=== PATIENT | female | born 1985 | race Caucasian/White ===

== ENCOUNTER 2016-09-27 03:40 | Observation (INO) | payer BC, MEDICAID ==
[~2016-09-27] VITALS: Ht 162.6 cm; Wt 97.5 kg
[~2016-09-27 03:40] MED LIST: PRENAT PO
[2016-09-27 03:44] VITALS: Ht 162.6 cm; Wt 97.5 kg
--- NOTE | 2016-09-27 04:17 | ERD ---
ER Documentation Chief Complaint Date/Time DATE: 09/27/16 TIME: 04:15 Chief Complaint lmp 08/20/16 states she has still iud in placed, pelvic pain HPI 22-year-old female presents here in emergency department for complaints of pelvic pain that started yesterday. Patient states that she just knew that she was yesterday. LMP 08/20/2016, patient states that she still has the IUD in place. Patient describes pelvic pain and cramping pain 4/10, not better or worse with anything. ROS All systems reviewed and are negative except as per history of present illness. Medications Home Meds Reported Medications Multivit/Min/Fol Ac/Iron/Pren* ( S*) 1 Tab Tab, 1 TAB PO DAILY, TAB 04/05/15 Allergies Allergies: Coded Allergies: No Known Drug Allergies (Verified Allergy, Unknown, 08/11/14) PMhx/Soc Medical and Surgical Hx: pt denies Medical Hx, pt denies Surgical Hx History of Surgery: No (denies) Anesthesia Reaction: No Hx Neurological Disorder: No Hx Respiratory Disorders: No Hx Cardiac Disorders: No Hx Psychiatric Problems: No Hx Miscellaneous Medical Probl: No Hx Alcohol Use: No Hx Substance Use: No Hx Tobacco Use: No Smoking Status: Never smoker FmHx Family History: No coronary disease, No diabetes, No other Physical Exam Vitals Vital Signs Date Time Temp Pulse Resp B/P Pulse Ox O2 Delivery O2 Flow Rate FiO2 09/27/16 03:44 97.8 94 20 163/70 99 Physical Exam GENERAL: The patient is well developed and appropriate for usual state of health, in no apparent distress. CHEST: Clear to auscultation bilaterally. There are no rales, wheezes or rhonchi. HEART: Regular rate and rhythm. No murmurs, clicks, rubs or gallops. No S3 or S4. ABDOMEN: Soft, nontender and nondistended. Good bowel sounds. No rebound or guarding. No gross peritonitis. No gross organomegaly or masses. No Olson sign or McBurney point tenderness. BACK: No midline or flank tenderness. EXTREMITIES: Equal pulses bilaterally. There is no peripheral clubbing, cyanosis or edema. No focal swelling or erythema. Full range of motion. Grossly neurovascularly intact. NEURO: Alert and oriented. Cranial nerves 2-12 intact. Motor strength in all 4 extremities with 5/5 strength. Sensation grossly intact. Normal speech and gait. SKIN: There is no apparent rash or petechia. The skin is warm and dry. HEMATOLOGIC AND LYMPHATIC: There is no evidence of excessive bruising or lymphedema. No gross cervical, axillary, or inguinal lymphadenopathy. Result Diagram: 09/27/16 0412 Results 24 hrs Laboratory Tests Test 09/27/16 04:08 09/27/16 04:12 09/27/16 05:12 Urine Color LT. YELLOW Urine Clarity SL HAZY Urine pH 6.0 Urine Specific [place] 1.020 Urine Ketones NEGATIVE Urine Nitrite NEGATIVE Urine Bilirubin NEGATIVE Urine Urobilinogen 0.2 E.U./dL Urine Leukocyte Esterase 1+ Urine Microscopic RBC 10-25/HPF Urine Microscopic WBC 25-50/HPF Urine Squamous Epithelial Cells FEW Urine Hemoglobin 3+ Urine Glucose NEGATIVE% Urine Total Protein NEGATIVE White Blood Count 16.610^3/ul Red Blood Count 4.2510^6/ul Hemoglobin 13.5g/dl Hematocrit 39.1% Mean Corpuscular Volume 92.0fl Mean Corpuscular Hemoglobin 31.8pg Mean Corpuscular Hemoglobin Concent 34.5g/dl Red Cell Distribution Width 12.8% Platelet Count 99650^3/UL Pending Mean Platelet Volume 11.4fl Neutrophils % 78.0% Lymphocytes % 14.7% Monocytes % 6.0% Eosinophils % 0.5% Basophils % 0.3% Nucleated Red Blood Cells % 0.0/100WBC Neutrophils # 12.910^3/ul Lymphocytes # 2.410^3/ul Monocytes # 1.010^3/ul Eosinophils # 0.110^3/ul Basophils # 0.110^3/ul Nucleated Red Blood Cells # 0.010^3/ul Beta HCG, Quantitative 20741.0mIU/ml Prothrombin Time 13.2Sec Prothrombin Time Ratio 1.0 INR International Normalized Ratio 1.00 Activated Partial Thromboplast Time 27.1Sec Thrombin Time 14.9SEC Fibrinogen 305.0mg/dl PROCEDURE: Obstetrical ultrasound, limited. CLINICAL INDICATION: Pelvic pain. TECHNIQUE: Multiple sonographic images of the pelvis were obtained using transabdominal technique. Images were obtained with lynch scale and color Doppler. The images were reviewed on a PACS workstation. COMPARISON: No prior studies are available for comparison. FINDINGS: There is a single intrauterine gestation with the fetus in a breech presentation. No heart tones are identified. The placenta is fundal in location, grade 0. There is no amniotic fluid. Measurements were made in order to determine age. The results are as follows: BPD = 3.43 cm HC = 14.00 cm AC = 13.52 cm FL = 2.91 cm. Estimated gestational age of approximately 18 weeks and 0 days. The EFW = 254 +/- 38 grams. IMPRESSION: Single intrauterine gestation of approximately 18 weeks and 0 days. No heart tones are identified compatible with early failed . .Marck Duong MD, MD Date Time Electronically viewed and signed by .Marck Duong MD, on 09/27/2016 04:38 .T/ CC: NATALYA CASTAÑEDA NP 050 I discussed case with OB Laborist, Dr Adames, recommended to do more testing, Coag Screen, FDP amd Fibrinogen, to relay results to OB when available , patient may choose couple of options for treatment: natural method, medical management or surgical management, tests were ordered, pending results at this time. will contact OB once results are back. Patient was informed regarding 18 week , patient didn't know how long she was and just knew about yesterday. Patient opted to do medical management for possible delivery of the 18 week , I discussed this case with OB Laborist, Dr Aadmes, she will admit patient to the hospital for possible IV Pitocin. Patient will be admitted to labor and delivery. Procedures/MDM Medical Decision Making: Patient has 18 week that is not viable consistent with demise and incomplete , patient opted to do medical management for possible delivery of the 18 week intrauterine demise, patient will be admitted to the hospital, will be admitted to labor and delivery, Dr Adames will admit patient to hospital. Departure Diagnosis: Primary Impression: IUFD (intrauterine ) Condition: Fair NATALYA CASTAÑEDA NP September 27, 2016 04:17
[2016-09-27 04:24] LABS: ADD SCAN DIFF NO
[2016-09-27 04:29] LABS: BASOPHIL # 0.1 10^3/ul (0.0-0.1); BASOPHILS % 0.3 % (0.0-2.0); EOSINOPHILS # 0.1 10^3/ul (0.0-0.5); EOSINOPHILS % 0.5 % (0.0-7.0); HEMATOCRIT 39.1 % (37.0-47.0); HEMOGLOBIN 13.5 g/dl (12.0-16.0); LYMPHOCYTES # 2.4 10^3/ul (0.8-2.9); LYMPHOCYTES % 14.7 % (15.0-51.0); MEAN CORPUSCULAR HEMOGLOBIN 31.8 pg (29.0-33.0); MEAN CORPUSCULAR HGB CONC 34.5 g/dl (32.0-37.0); MEAN PLATELET VOLUME 11.4 fl (7.4-10.4); NEUTROPHIL # 12.9 10^3/ul (1.6-7.5); PLATELET COUNT 164 10^3/UL (140-415); RED BLOOD COUNT 4.25 10^6/ul (4.20-5.40); RED CELL DISTRIBUTION WIDTH 12.8 % (11.5-14.5); WHITE BLOOD COUNT 16.6 10^3/ul (4.8-10.8)
[2016-09-27 04:30] LABS: ADD UMIC YES; URINE BILIRUBIN (Dip) NEGATIVE (NEGATIVE); URINE BLOOD (Dip) 3+ (NEGATIVE); URINE COLOR LT. YELLOW (YELLOW); URINE GLUCOSE (Dip) NEGATIVE (NEGATIVE); URINE KETONES (Dip) NEGATIVE (NEGATIVE); URINE LEUKOCYTE ESTERASE (Dip) 1+ (NEGATIVE); URINE NITRITE (Dip) NEGATIVE (NEGATIVE); URINE TOTAL PROTEIN (Dip) NEGATIVE (NEGATIVE); URINE UROBILINOGEN (Dip) 0.2 E.U./dL (0.1-1.0)
--- NOTE | 2016-09-27 04:38 | RADRPT ---
PROCEDURE: Obstetrical ultrasound, limited. CLINICAL INDICATION: Pelvic pain. TECHNIQUE: Multiple sonographic images of the pelvis were obtained using transabdominal technique . Images were obtained with lynch scale and color Doppler. The images were reviewed on a PACS works tation. COMPARISON: No prior studies are available for comparison. FINDINGS: There is a single intrauterine gestation with the fetus in a breech presentation. No heart to natalie are identified. The placenta is fundal in location, grade 0. There is no amniotic fluid. Measurements were made in order to determine age. The results are as follows: BPD =3.43 cm HC =14.00 cm AC =13.52 cm FL =2.91 cm. Estimated gestational age of approximately 18 weeks and 0 days. The EFW = 254 +/- 38 grams. IMPRESSION: Single intrauterine gestation of approximately 18 weeks and 0 days. No heart tones are identi fied compatible with early failed . .Marck Duong MD, Date Time Electronically viewed and signed by .Marck Duong MD, MD on 09/27/2016 04:38 .T/
[2016-09-27 04:41] LABS: SQUAMOUS EPITHELIAL CELL,UR FEW
[2016-09-27 05:45] LABS: PROTIME 13.2 Sec (12.2-14.2)
[2016-09-27 05:46] LABS: PARTIAL THROMBOPLASTIN TIME 27.1 Sec (25.0-35.0); THROMBIN TIME 14.9 SEC (13.8-19.1)
[2016-09-27] MEDS ORDERED: SUCCINYLCHOLINE CHLORIDE 100 MG/5 ML SYG IV ONE (07:00)
[2016-09-27 09:12] VITALS: TEMP 98.1
[2016-09-27 09:50] VITALS: BP 139/81; PULSE 82; RESP 18
[2016-09-27] MEDS ORDERED: MISOPROSTOL 200 MCG TAB PR PRN ×2 (10:00→23:00)
[2016-09-27] MEDS ORDERED: LIDOCAINE 1% (MPF) 30 ML INJ INJ PRN (10:00)
[2016-09-27] MEDS ORDERED: OXYTOCIN 30 UNITS/LR 500 ML IV SCH ×2 (10:00)
[2016-09-27] MEDS ORDERED: OXYTOCIN 30 UNITS/LR 500 ML IV PRN ×2 (10:00→23:00)
[2016-09-27] MEDS ORDERED: LACTATED RINGER'S 1,000 ML IV PRN (10:00)
[2016-09-27] MEDS ORDERED: METHYLERGONOVINE 0.2 MG INJ IM PRN ×2 (10:00→23:00)
[2016-09-27] MEDS ORDERED: CARBOPROST 250 MCG INJ IM PRN ×2 (10:00→23:00)
[2016-09-27] MEDS ORDERED: BUTORPHANOL 2 MG INJ IV PRN (10:00)
[2016-09-27] MEDS ORDERED: MISOPROSTOL 200 MCG TAB PR STA (10:51)
[2016-09-27] MEDS: LACTATED RINGER'S 1,000 ML IV SCH ×3 (11:25→19:58)
[2016-09-27] MEDS ORDERED: CEFTRIAXONE 1 GM/50 ML (PMX) 50 ML IVPB SCH (12:00)
[2016-09-27] MEDS: MISOPROSTOL 200 MCG TAB PR PRN ×3 (13:15→15:58)
[2016-09-27] MEDS ORDERED: FENTAnyl 50 MCG/ML VIAL ONE (17:28)
[2016-09-27] MEDS ORDERED: PHENYLephrine (100 MCG/ML) 5ML SYG ONE (17:36)
[2016-09-27 17:59] LABS: HEMATOCRIT 34.3 % (37.0-47.0); HEMOGLOBIN 11.6 g/dl (12.0-16.0)
[2016-09-27] MEDS ORDERED: NEOSTIGMINE 3 MG/3 ML SYRINGE ONE (18:02)
--- NOTE | 2016-09-27 18:10 | QN ---
Documentation Comment September 27, 2006 Operative report Incomplete evacuation of uterine content and placenta Anesthesia general Procedure; under light general anesthesia patient was placed in lithotomy position vaginal area prepped and draped On bimanual examination the cervix was already dilated and portion of the placental cord was palpable speculum was placed inside the vagina and the entire uterus was removed using ring forceps and a pelvic exam was repeated And the uterus was contracted with very little bleeding after this procedure patient was transferred to her room in stable condition End of dictation thank ALICJA MCDONALD MD September 27, 2016 18:10
--- NOTE | 2016-09-27 18:21 | CONS ---
Date/Time of Note Date/Time of Note DATE: 09/27/16 TIME: 18:11 Consultation Date/Type/Reason Admit Date/Time September 27, 2016 at 05:57 Reason for Consultation This is a consult and preoperative history and physical This patient is a 30 years old 4 para 1 AB 2 . She came to emergency room due to delay in her period and apparently the of unknown duration. On ultrasound study the of about 18 weeks was noted the fetus did not have any heart motion. She was subsequently admitted in OB floor On examination fundus was about 18 weeks size no heart tone no contractions. On pelvic examination cervix was closed and thick Her condition was discussed with the patient and the decision was made to go ahead for induction of the with Cytotec which will start this morning. Her past history is significant in that her last delivery was terminated prematurely at 35 weeks due to preeclampsia . The delivery was done by section,. She said she inserted an IUD couple years ago however on ultrasound IUD was not detected On examination her blood pressure was about 130/80 pulse 80 respirations were 29 , Laboratory Tests Test 09/27/16 04:08 09/27/16 04:12 09/27/16 05:12 Urine Color LT. YELLOW Urine Clarity SL HAZY Urine pH 6.0 Urine Specific [place] 1.020 Urine Ketones NEGATIVE Urine Nitrite NEGATIVE Urine Bilirubin NEGATIVE Urine Urobilinogen 0.2 E.U./dL Urine Leukocyte Esterase 1+ Urine Microscopic RBC 10-25/HPF Urine Microscopic WBC 25-50/HPF Urine Squamous Epithelial Cells FEW Urine Hemoglobin 3+ Urine Glucose NEGATIVE% Urine Total Protein NEGATIVE White Blood Count 16.610^3/ul Red Blood Count 4.2510^6/ul Hemoglobin 13.5g/dl Hematocrit 39.1% Mean Corpuscular Volume 92.0fl Mean Corpuscular Hemoglobin 31.8pg Mean Corpuscular Hemoglobin Concent 34.5g/dl Red Cell Distribution Width 12.8% Platelet Count 19222^3/UL 32265^3/UL Mean Platelet Volume 11.4fl Neutrophils % 78.0% Lymphocytes % 14.7% Monocytes % 6.0% Eosinophils % 0.5% Basophils % 0.3% Nucleated Red Blood Cells % 0.0/100WBC Neutrophils # 12.910^3/ul Lymphocytes # 2.410^3/ul Monocytes # 1.010^3/ul Eosinophils # 0.110^3/ul Basophils # 0.110^3/ul Nucleated Red Blood Cells # 0.010^3/ul Beta HCG, Quantitative 38251.0mIU/ml Hepatitis B Surface Antigen NEGATIVE Prothrombin Time 13.2Sec Prothrombin Time Ratio 1.0 INR International Normalized Ratio 1.00 Activated Partial Thromboplast Time 27.1Sec Thrombin Time 14.9SEC Fibrinogen 305.0mg/dl Plasma Fibrin Degradation Products <10ug/ml Current Medications Medications (Trade) Dose Ordered Sig/Pankaj Route PRN Reason Start Time Stop Time Status Last Admin Dose Admin Lactated Ringer's (Lr) 1,000 ml @ 125 mls/hr Q8H IV 09/27/16 09:52 09/27/16 11:25 125 MLS/HR Butorphanol Tartrate (Stadol) 2 mg Q2H PRN IV PAIN 09/27/16 10:00 09/27/16 15:56 2 MG Lidocaine 30 ml 30 ml ONCE PRN INJ EPISIOTOMY/TEARING 09/27/16 10:00 Oxytocin/Lactated Ringer's 500 ml @ 125 mls/hr ONCE -MAY REPEAT X1 IV 09/27/16 10:00 09/27/16 14:50 125 MLS/HR Oxytocin/Lactated Ringer's 500 ml @ 125 mls/hr ONCE IV 09/27/16 10:00 09/27/16 15:45 125 MLS/HR Lactated Ringer's 1,000 ml @ 2,000 mls/hr Q30M PRN IV PRE-EPIDURAL BOLUS 09/27/16 10:00 Oxytocin/Lactated Ringer's 500 ml @ 0 mls/hr ONCE PRN IV For Hemorrhage Management 09/27/16 10:00 Methylergonovine Maleate (Methergine) 0.2 mg ONCE PRN IM VAGINAL BLEEDING 09/27/16 10:00 Carboprost Tromethamine (Hemabate) 250 mcg ONCE PRN IM VAGINAL BLEEDING 09/27/16 10:00 Misoprostol 1000 mcg 1,000 mcg ONCE PRN [place] VAGINAL BLEEDING 09/27/16 10:00 Ceftriaxone Sodium (Rocephin) 50 ml @ 100 mls/hr Q12 IVPB 09/27/16 12:00 09/27/16 11:42 100 MLS/HR Misoprostol (Cytotec) 500 mcg ONCE STAT [place] 09/27/16 10:51 09/27/16 11:04 DC 09/27/16 11:18 400 MCG Misoprostol (Cytotec) 200 mcg Q2 PRN [place] CONTRACTIONS 09/27/16 11:30 09/27/16 15:58 200 MCG Fentanyl (Sublimaze) 100 mcg STK-MED ONCE .ROUTE 09/27/16 17:28 09/27/16 17:29 DC Phenylephrine HCl (Babar-Synephrine Inj Syg) 500 mcg STK-MED ONCE .ROUTE 09/27/16 17:36 09/27/16 17:37 DC Neostigmine Methylsulfate (Neostigmine) 3 mg STK-MED ONCE .ROUTE 09/27/16 18:02 09/27/16 18:03 DC Constitutional: No chills, No diaphoresis, No disoriented, No febrile, No improved, No no complaints, No other, No poor po, No requiring IVF, No requiring O2 Eyes: No discharge, No no complaints, No other, No pain, No redness, No visual change ENT: No bleeding, No congestion, No discharge, No dysphagia, No no complaints, No other, No pain, No sore throat Respiratory: No cough, No no complaints, No other, No pain, No pleuritic pain, No shortness of breath, No sputum, No wheezing Cardiovascular: No chest pain, No edema, No lightheadedness, No no complaints, No orthopenea, No other, No palpitations, No paroxysmal nocturnal dyspnea Gastrointestinal: No blood, No constipation, No decreased appetite, No diarrhea , No flatus, No nausea, No no complaints, No other, No pain, No passing stool, No vomiting Genitourinary: other (The uterus was enlarged about 18 weeks size no heart tone as I mentioned cervix was about 1 finger 50%), No bleeding, No discharge, No dysuria, No flank pain, No hematuria, No no complaints Musculoskeletal: No back pain, No bone/joint pain, No neck pain, No no complaints, No other, No restricted range of motion, No swelling Skin: No bruising, No erythema, No laceration, No no complaints, No other, No pruritis, No rash, No skin lesions Neurologic: No confusion, No dizziness, No focal-weakness, No headache, No no complaints, No other, No seizure, No syncope Endocrine: No dry skin, No no complaints, No other, No polydypsia, No polyuria , No temp intolerance Psychological: No anxiety, No confusion, No depression, No nl mood/affect, No no complaints, No other, No suicidal Additional Comments We the diagnosis of demise at 15 weeks she was induced with prostaglandin "Cytotec". Cervix became soft and started dilating and gradually made progress and delivered the fetus which was in breech presentation . Cord was clamped and cut. The placenta did not come out after about 2 hours due to excessive bleeding she was taken to the operating room where the placenta was removed under light general anesthesia . She was already given 2 units of blood and we are doing H&H for possible more transfusion if necessary. Social History Smoking Status: Never smoker Exam/Review of Systems Vital Signs Vitals Vital Signs Date Time Temp Pulse Resp B/P Pulse Ox O2 Delivery O2 Flow Rate FiO2 09/27/16 09:50 98.4 82 18 139/81 Room Air 09/27/16 09:12 100 Results Result Diagram: 09/27/16 0512 Results 24 hrs Laboratory Tests Test 09/27/16 04:08 09/27/16 04:12 09/27/16 05:12 Urine Color LT. YELLOW Urine Clarity SL HAZY Urine pH 6.0 Urine Specific [place] 1.020 Urine Ketones NEGATIVE Urine Nitrite NEGATIVE Urine Bilirubin NEGATIVE Urine Urobilinogen 0.2 E.U./dL Urine Leukocyte Esterase 1+ H Urine Microscopic RBC 10-25 Urine Microscopic WBC 25-50 Urine Squamous Epithelial Cells FEW Urine Hemoglobin 3+ H Urine Glucose NEGATIVE Urine Total Protein NEGATIVE White Blood Count 16.6 #H Red Blood Count 4.25 # Hemoglobin 13.5 # Hematocrit 39.1 # Mean Corpuscular Volume 92.0 Mean Corpuscular Hemoglobin 31.8 Mean Corpuscular Hemoglobin Concent 34.5 Red Cell Distribution Width 12.8 Platelet Count 164 164 Mean Platelet Volume 11.4 H Neutrophils % 78.0 H Lymphocytes % 14.7 L Monocytes % 6.0 Eosinophils % 0.5 Basophils % 0.3 Nucleated Red Blood Cells % 0.0 Neutrophils # 12.9 H Lymphocytes # 2.4 Monocytes # 1.0 H Eosinophils # 0.1 Basophils # 0.1 Nucleated Red Blood Cells # 0.0 Beta HCG, Quantitative 22228.0 Hepatitis B Surface Antigen NEGATIVE Prothrombin Time 13.2 Prothrombin Time Ratio 1.0 INR International Normalized Ratio 1.00 Activated Partial Thromboplast Time 27.1 Thrombin Time 14.9 Fibrinogen 305.0 # Plasma Fibrin Degradation Products <10 Medications Medications Current Medications Lactated Ringer's (Lr) 1,000 ml @ 125 mls/hr Q8H IV Last administered on 11:25; Admin Dose 125 MLS/HR; Start 09/27/16 at 09:52 Butorphanol Tartrate (Stadol) 2 mg Q2H PRN IV PAIN Last administered on 15:56; Admin Dose 2 MG; Start 09/27/16 at 10:00 Lidocaine 30 ml 30 ml ONCE PRN INJ EPISIOTOMY/TEARING; Start 09/27/16 at 10:00 Oxytocin/Lactated Ringer's 500 ml @ 125 mls/hr ONCE IV Last administered on 15:45; Admin Dose 125 MLS/HR; Start 09/27/16 at 10:00 Lactated Ringer's 1,000 ml @ 2,000 mls/hr Q30M PRN IV PRE-EPIDURAL BOLUS; Start 09/27/16 at 10:00 Oxytocin/Lactated Ringer's 500 ml @ 0 mls/hr ONCE PRN IV For Hemorrhage Management; Start 09/27/16 at 10:00 Methylergonovine Maleate (Methergine) 0.2 mg ONCE PRN IM VAGINAL BLEEDING; Start 09/27/16 at 10:00 Carboprost Tromethamine (Hemabate) 250 mcg ONCE PRN IM VAGINAL BLEEDING; Start 09/27/16 at 10:00 Misoprostol 1000 mcg 1,000 mcg ONCE PRN [place] VAGINAL BLEEDING; Start 09/27/16 at 10:00 Ceftriaxone Sodium (Rocephin) 50 ml @ 100 mls/hr Q12 IVPB Last administered on 09/27/16 11:42; Admin Dose 100 MLS/HR; Start 09/27/16 at 12:00 Misoprostol (Cytotec) 200 mcg Q2 PRN [place] CONTRACTIONS Last administered on 15:58; Admin Dose 200 MCG; Start 09/27/16 at 11:30 ALICJA MCDONALD MD September 27, 2016 18:21
[2016-09-27] MEDS ORDERED: DIPHENHYDRAMINE 50 MG INJ IV PRN ×2 (19:00)
[2016-09-27] MEDS ORDERED: KETOROLAC 30 MG INJ IV PRN (19:00)
[2016-09-27] MEDS ORDERED: HYDROmorphONE (0.2 MG/ML) 10ML SYG IV PRN ×3 (19:00)
[2016-09-27] MEDS ORDERED: ONDANSETRON 4 MG INJ IV PRN ×2 (19:00)
[2016-09-27] MEDS ORDERED: MEPERIDINE 25 MG INJ IV PRN (19:00)
[2016-09-27] MEDS ORDERED: FENTAnyl 50 MCG/ML VIAL IV PRN (19:00)
[2016-09-27] MEDS ORDERED: NALOXONE (0.4 MG/ML) INJ IV PRN (19:00)
[2016-09-27] MEDS ORDERED: HYDROmorphONE 1 MG/ML SYG IV PRN ×2 (19:00)
[2016-09-27] MEDS ORDERED: METOCLOPRAMIDE 10 MG INJ IV PRN (19:00)
[2016-09-27] MEDS ORDERED: KETOROLAC 30 MG INJ IV ONE (19:00)
[2016-09-27] MEDS ORDERED: SOD CHLORIDE 0.9% 1,000 ML IV SCH (21:30)
[2016-09-27] MEDS ORDERED: OXYCODONE/ASPIRIN (4.88/325) TAB PO PRN ×2 (23:00)
[2016-09-27] MEDS ORDERED: LANOLIN 7 GM TUBE TOP PRN (23:00)
[2016-09-27] MEDS ORDERED: ZOLPIDEM 5 MG TAB PO PRN (23:00)
[2016-09-27] MEDS ORDERED: WITCH HAZEL/GLYCERIN PAD PR PRN (23:00)
[2016-09-27] MEDS ORDERED: BENZOCAINE 20% 56 ML SPRAY TOP PRN (23:00)
[2016-09-28 00:57] LABS: HEMATOCRIT 26.3 % (37.0-47.0); HEMOGLOBIN 8.8 g/dl (12.0-16.0)
[2016-09-28] MEDS: IBUPROFEN 600 MG TAB PO SCH ×3 (06:00→15:00)
[2016-09-28 06:03] LABS: ADD SCAN DIFF NO
[2016-09-28 06:13] LABS: BASOPHILS % 0.2 % (0.0-2.0); EOSINOPHILS # 0.1 10^3/ul (0.0-0.5); EOSINOPHILS % 0.6 % (0.0-7.0); HEMATOCRIT 25.9 % (37.0-47.0); HEMOGLOBIN 8.4 g/dl (12.0-16.0); LYMPHOCYTES # 2.4 10^3/ul (0.8-2.9); LYMPHOCYTES % 15.7 % (15.0-51.0); MEAN CORPUSCULAR HGB CONC 32.4 g/dl (32.0-37.0); MEAN CORPUSCULAR VOLUME 95.6 fl (82.0-101.0); MEAN PLATELET VOLUME 11.6 fl (7.4-10.4); MONOCYTE # 0.8 10^3/ul (0.3-0.9); MONOCYTES % 5.3 % (0.0-11.0); NEUTROPHIL # 11.8 10^3/ul (1.6-7.5); NEUTROPHILS % 77.5 % (39.0-77.0); PLATELET COUNT 138 10^3/UL (140-415); RED BLOOD COUNT 2.71 10^6/ul (4.20-5.40); RED CELL DISTRIBUTION WIDTH 13.2 % (11.5-14.5); WHITE BLOOD COUNT 15.2 10^3/ul (4.8-10.8)
[2016-09-28] MEDS ORDERED: SENNA/DOCUSATE NA (8.6MG/50MG) TAB PO SCH (09:00)
[2016-09-28] MEDS ORDERED: CEFTRIAXONE 1 GM/50 ML (PMX) 50 ML IVPB SCH (11:00)
[2016-09-28] MEDS ORDERED: DOXYCYCLINE 100 MG TAB PO ONE (11:00)
--- NOTE | 2016-09-28 16:47 | DS ---
DATE OF ADMISSION: 09/27/2016 DATE OF DISCHARGE: 09/28/2016 DISCHARGE DIAGNOSES: 1. Status post induction for demise at 18 weeks. 2. hemorrhage. 3. dilation and curettage. HISTORY AND HOSPITAL COURSE: The patient is a 22-year-old G4, P1 who presents at 18 weeks. The pat ient had unknown , was found to be approximately 15 to 18 weeks gestation and was found to have a demise. The patient ____was counseled and patient decided to be admitted to hospital f or induction and delivery. Patient nontender with Cytotec to be induced, ____to be delivered. The patient had hemorrhage requiring a dilation and curettage for delivery of the placenta. The patient is postoperative day #1 now, is doing well, no nausea, vomiting, fevers or chills. No h eadache, shortness of breath or any signs or symptoms. Vital signs, blood pressure, pulse all withi n normal limits. Hemoglobin patient is usually at 11.6, down to 8.4; however, the patient is having minimal bleeding. Again, is asymptomatic. At this point, the patient will be discharged to home i n stable condition. Follow up with Dr. Stinson in approximately 3 to 4 weeks. ER precautions wer e given and patient is stable upon discharge. Dictated By: SERENA RODRIGUEZ MD /NTS Conf#: [id number] DID#: [id number]
[2016-09-29] MEDS ORDERED: DIPHTH/TET/ACEL PERTUSS (ADULT) 0.5 ML VIAL IM* ONE (09:00)
== END 2016-09-28 16:59 | disposition home or self-care (01) ==
LOC: FTE 03:40 → L-D 05:57 → INTOOBSV 05:57 → L-D 17:22 → OBG 21:51
DX: O03.4 Incomplete spontaneous abortion without complication (principal); E66.9 Obesity, unspecified; Z68.36 Body mass index [BMI] 36.0-36.9, adult
CPT/HCPCS: 36415; 59812; 76801; 81001; 84702; 85014; 85018; 85025; 85049; 85362; 85384; 85610; 85670; 85730; 86592; 86850; 86900; 86901; 86920; 87340; 99217; 99285; J0696; J2590; J3010; J7030; J7120; J7999; 81003; G0378; J2370; J2710